=== PATIENT | male | born 1965 | race Caucasian/White ===

== ENCOUNTER → 2020-06-17 15:22 | Outpatient (BNVA) | payer OTHER, SELFPAY | PROVIDERS: PCP Nurse Practitioner Family; Visit Provider Nurse Practitioner Family | DX: Z76.89 Persons encountering health services in other specified circumstances (principal) ==

== ENCOUNTER 2020-06-25 06:11 | Outpatient (REF) | payer OTHER, SELFPAY ==
[2020-06-25 11:40] LABS: Hemoglobin 16.2 g/dl (14.0-18.0); Mean Corpuscular HGB Conc 34.5 g/dl (31.0-36.0); Mean Corpuscular Hemoglobin 30.7 pg (27.0-33.0); Mean Platelet Volume 9.7 fL (9.4-12.4); Platelet Count 225 X10*3/uL (160-400); Red Blood Count 5.28 X10*6/uL (4.60-5.80); Red Cell Distribution Width 12.3 % (11.0-16.0); White Blood Count 5.5 X10*3/uL (4.8-10.8)
[2020-06-25 11:44] LABS: Glucose Urine UA NEG (NEG); Leukocyte Esterase Urine NEG (NEG); Nitrite Urine NEG (NEG); Specific Gravity - Urine <= 1.005 (1.005-1.025); Urine Blood NEG (NEG); Urine Ketones NEG (NEG); Urine Protein NEG (NEG-TRACE)
[2020-06-25 11:51] LABS: Appearance Urine CLEAR; Color Urine YELLOW
[2020-06-25 11:56] LABS: Alanine Aminotransferase 28 U/L (0-40); Albumin Level 4.5 g/dL (3.5-5.0); Alkaline Phosphatase 44 U/L (39-117); Anion Gap 13 (12-20); Aspartate Amino Transferase 20 U/L (5-37); Bilirubin Total 0.9 mg/dL (0.0-1.0); Blood Urea Nitrogen 18 mg/dL (9-16); Calcium 8.2 mg/dL (8.4-10.2); Carbon Dioxide 25 mmol/L (22-29); Chloride 102 mmol/L (96-108); Cholesterol 202 mg/dL; Estimated Glomerular Filt Rate > 60; Glucose Fasting 92 mg/dL (60-99); HDL Cholesterol 40 mg/dL; LDL Cholesterol Calculated 122 mg/dl; Sodium 136 mmol/L (135-145); Triglycerides 204 mg/dL
[2020-06-25 12:18] LABS: Prostate Specific Antigen Scr 0.87 ng/mL (<0.05-4.0); TSH reflex Free T4 2.17 mIU/mL (0.32-4.0)
== END 2020-06-25 06:12 | disposition home or self-care (01) ==
LOC: HO.HMGCLDS 06:11
PROVIDERS: PCP Nurse Practitioner Family; Visit Provider Nurse Practitioner Family
DX: Z00.00 Encounter for general adult medical examination without abnormal findings (principal); Z12.5 Encounter for screening for malignant neoplasm of prostate; Z12.11 Encounter for screening for malignant neoplasm of colon
CPT/HCPCS: 36415; 80053; 80061; 81003; 84153; 84443; 85027

== ENCOUNTER 2020-08-18 07:18 | Day surgery (SDC) | payer OTHER, SELFPAY ==
--- NOTE | 2020-08-15 08:16 | HO.ANESPROP2 ---
Documented by User: Ban Alfaro 08/15/20 13:23 HPI - Anesthesia Eval Consult details Narrative: 54yo M for Colonoscopy [facility] Past Medical History Medical History Diverticulitis Dyslipidemia Family History Family History Mother Diabetes HTN (hypertension) Father Stomach cancer Diabetes HTN (hypertension) Brother No problems noted. Social History Social History Alcohol intake: current Alcohol intake frequency: a few times a month Alcohol type: beer Smoking Status: Never smoker Advance Directives: No Advance Directives Information Provided: Yes Meds Allergies Allergy/AdvReac Type Severity Reaction Status Date / Time Penicillins [PENICILLINS] Allergy Severe ANAPHYLAXIS Verified 06/17/20 15:23 penicillin V Allergy Unknown anaphylaxis Verified 06/17/20 15:23 Exam Exam Date and Time: August 15, 2020 0816 Assessment and Plan Assessment Anesthesia Assessment: Chart Reviewed Documented by User: Remi Ritchie 08/18/20 07:44 [facility] Past Medical History Medical History Diverticulitis Dyslipidemia Family History Family History Mother Diabetes HTN (hypertension) Father Stomach cancer Diabetes HTN (hypertension) Brother No problems noted. Social History Social History Alcohol intake: current Alcohol intake frequency: a few times a month Alcohol type: beer Smoking Status: Never smoker Advance Directives: No Advance Directives Information Provided: Yes Meds Allergies Allergy/AdvReac Type Severity Reaction Status Date / Time Penicillins [PENICILLINS] Allergy Severe ANAPHYLAXIS Verified 06/17/20 15:23 penicillin V Allergy Unknown anaphylaxis Verified 06/17/20 15:23 Exam Airway Mallampati Class: II TM Dist: >3cm Neck ROM: Full
--- NOTE | 2020-08-18 07:34 | MHC.SHP ---
Pre-Procedural Eval Section B Chief Complaint: screening Relevant Family History (Specify if Yes): No Relevant Social History: None Present Medications: None Medical History: Significant History (Diverticulitis Dyslipidemia) History of Previous Operations: No relevant previous surgery Allergies: Allergies Allergy/AdvReac Type Severity Reaction Status Date / Time Penicillins [PENICILLINS] Allergy Severe ANAPHYLAXIS Verified 06/17/20 15:23 penicillin V Allergy Unknown anaphylaxis Verified 06/17/20 15:23 Review of Systems Sugical H&P ROS: Negative: Constitution, Cardiovascular, Respiratory, Neurological, Psychiatric, Hem-Onc, Allergic/Immunologic, Gastrointestinal, Genitourinary, Musculoskeletal, Integumentary, Endocrine and Eyes/Ears/Nose/Throat Exam Surgical H&P Exam: Normal: HEENT, Normal: Heart, Normal: Lungs, Normal: Extremities, Normal: Abdomen, Normal: Skin and Normal: Neurological Plan Diagnosis/Plan: Unchanged I have reviewed the history and physical and performed a pertinent physical examination on my patient. No changes have occurred unless specified.
[2020-08-18 08:00] VITALS: BMI 29.7; BMI 30.6
[2020-08-18 08:07] VITALS: BP 139/98; PULSE 91; RESP 16; TEMP 36.1; O2SAT 98
[2020-08-18] MEDS: Lactated Ringers 1,000 ML 100 ML IVCONT (08:10)
--- NOTE | 2020-08-18 09:08 | PM.OP ---
Brief Operative Note Date of Service: 08/18/20 Pre-op diagnosis: colon screen Post-op diagnosis: same Procedure: see op note Surgeon: Toy Dunaway MD Anesthesia: MAC Estimated blood loss (mL): 0 Condition: stable Disposition: PACU
--- NOTE | 2020-08-18 09:09 | W.PM.OPN ---
Operative Note Operative Note Date of Service: 08/18/20 Narrative: Operative Information Procedure Description: Colonoscopy COLONOSCOPY Instrument: Olympus variable stiffness pediatric scope 190L Colonoscopy Monitoring: Vital signs and clinical assessment, continuous EKG monitoring, Pulse oximetry, Carbon Dioxide monitoring and blood pressure monitoring were done throughout the procedure. Colon withdrawal time was 10 minutes. Procedure: The patient was placed in the left lateral decubitis position and pre-procedure medications were administered. After a digital rectal examination of the ano-rectum, the video colonoscope was inserted into the rectum and advanced through the colon to the cecum/TI. The colonoscope was slowly withdrawn in a retrograde panoramic fashion and the colon mucosa was carefully examined including a retroflexed view of the rectum. Findings and interventions are described below. Procedure Difficulty:easy Findings: Terminal Ileum-normal Cecum:normal Ascending Colon: normal Transverse Colon -normal Descending Colon:10 mm sessile polyp removed with cold snare otherwise normal Sigmoid Colon: normal Rectum: Retroflexion with small internal hemorrhoids, grade I Anorectum - normal Colon preparation: [place] Bowel Preparation Scale Right colon; 3 Transverse colon: 2 Left colon; 2 (0 = Unprepared colon segment with mucosa not seen due to solid stool that cannot be cleared. 1 = Portion of mucosa of the colon segment seen, but other areas of the colon segment not well seen due to staining, residual stool and/or opaque liquid. 2 = Minor amount of residual staining, small fragments of stool and/or opaque liquid, but mucosa of colon segment seen well. 3 = Entire mucosa of colon segment seen well with no residual staining, small fragments of stool or opaque liquid) Impression and Post Procedure Diagnosis: polyp internal hemorrhoids Plan: High fiber diet leaflet Avoid straining at stool, epsom salts and sitz bath, anusol supps or cream prn Repeat Colonoscopy in 5-6 years or earlier if clinically indicated Above findings were reviewed with the patient and relevant handouts were provided if indicated.
[2020-08-18 09:10] VITALS: BP 110/67; PULSE 72; RESP 14; TEMP 36.2; O2SAT 95
[2020-08-18 09:25] VITALS: BP 128/80; PULSE 72; RESP 17; TEMP 36.2; O2SAT 96
== END 2020-08-18 09:43 | disposition home or self-care (01) ==
PROVIDERS: PCP Nurse Practitioner Family; Visit Provider Internal Medicine Gastroenterology
PROC: 0DJD8ZZ Inspection of Lower Intestinal Tract, Via Natural or Artificial Opening Endoscopic (ICD-10-PCS; CPT 45378; principal; 2020-08-18 08:30)
DX: Z12.11 Encounter for screening for malignant neoplasm of colon (principal); D12.4 Benign neoplasm of descending colon; K64.0 First degree hemorrhoids; Z87.19 Personal history of other diseases of the digestive system; Z88.0 Allergy status to penicillin
CPT/HCPCS: 45385; 88305; J3010

== ENCOUNTER → 2020-09-09 15:19 | Outpatient (BNVA) | payer OTHER, SELFPAY | PROVIDERS: PCP Nurse Practitioner Family; Visit Provider Nurse Practitioner Family ==

== ENCOUNTER 2022-01-01 06:03 | Outpatient (REF) | payer OTHER, SELFPAY ==
[2022-01-01 11:29] LABS: Appearance Urine CLEAR; Color Urine YELLOW; Glucose Urine UA NEG (NEG); Leukocyte Esterase Urine NEG (NEG); Nitrite Urine NEG (NEG); Urine Blood NEG (NEG); Urine Ketones NEG (NEG); Urine Protein NEG (NEG-TRACE)
[2022-01-01 11:42] LABS: MANUAL DIFF FLAG NO
[2022-01-01 12:04] LABS: Basophils Percent Auto 0.6 % (0-2); Eosinophils Absolute Auto 0.2 X10*3/uL (0.0-0.4); Eosinophils Percent Auto 3.1 % (0-4); Hematocrit 47.8 % (42.0-52.0); Hemoglobin 16.3 g/dl (14.0-18.0); Imm Gran Abs Auto 0.02 X10*3/uL (0.00-0.03); Imm Gran Pct Auto 0.4 % (0.0-0.4); Lymphocytes Absolute Auto 1.7 X10*3/uL (1.2-4.9); Lymphocytes Percent Auto 33.9 % (20-40); Mean Corpuscular HGB Conc 34.1 g/dl (31.0-36.0); Mean Corpuscular Hemoglobin 30.2 pg (27.0-33.0); Mean Corpuscular Volume 88.7 fL (80.0-98.0); Mean Platelet Volume 9.7 fL (9.4-12.4); Monocytes Absolute Auto 0.5 X10*3/uL (0.1-1.2); Neutrophils Absolute Auto 2.7 x10*3/uL (2.0-8.3); Platelet Count 231 X10*3/uL (160-400); Red Blood Count 5.39 X10*6/uL (4.60-5.80); Red Cell Distribution Width 12.6 % (11.0-16.0); White Blood Count 5.1 X10*3/uL (4.8-10.8)
[2022-01-01 12:19] LABS: Alanine Aminotransferase 19 U/L (0-40); Albumin Level 4.7 g/dL (3.5-5.0); Alkaline Phosphatase 51 U/L (39-117); Anion Gap 13 (12-20); Aspartate Amino Transferase 18 U/L (5-37); Bilirubin Total 0.7 mg/dL (0.0-1.0); Blood Urea Nitrogen 19 mg/dL (9-16); Calcium 9.3 mg/dL (8.4-10.2); Carbon Dioxide 26 mmol/L (22-29); Chloride 108 mmol/L (96-108); Cholesterol 196 mg/dL; Estimated Glomerular Filt Rate > 60; Glucose Fasting 110 mg/dL (60-99); HDL Cholesterol 40 mg/dL; LDL Cholesterol Calculated 124 mg/dl; Potassium 4.7 mmol/L (3.3-5.1); Sodium 142 mmol/L (135-145); Total Protein 7.6 g/dL (6.5-8.0); Triglycerides 163 mg/dL
[2022-01-01 12:42] LABS: Prostate Specific Antigen Scr 0.65 ng/mL (<0.05-4.0); TSH reflex Free T4 1.55 uIU/mL (0.32-4.0)
== END 2022-01-01 06:04 | disposition home or self-care (01) ==
LOC: HO.HMGCLDS 06:03
PROVIDERS: PCP Nurse Practitioner Family; Visit Provider Nurse Practitioner Family
DX: Z00.00 Encounter for general adult medical examination without abnormal findings (principal); Z12.5 Encounter for screening for malignant neoplasm of prostate
CPT/HCPCS: 36415; 80053; 80061; 81003; 84153; 84443; 85025

== ENCOUNTER 2022-06-16 08:39 | Outpatient (REF) | payer OTHER, SELFPAY ==
[2022-06-16 11:16] LABS: MANUAL DIFF FLAG NO
[2022-06-16 11:34] LABS: Basophils Percent Auto 0.8 % (0-2); Eosinophils Absolute Auto 0.2 X10*3/uL (0.0-0.4); Hemoglobin 16.3 g/dl (14.0-18.0); Imm Gran Abs Auto 0.03 X10*3/uL (0.00-0.03); Imm Gran Pct Auto 0.6 % (0.0-0.4); Lymphocytes Absolute Auto 1.5 X10*3/uL (1.2-4.9); Lymphocytes Percent Auto 31.2 % (20-40); Mean Corpuscular Hemoglobin 29.7 pg (27.0-33.0); Mean Corpuscular Volume 87.4 fL (80.0-98.0); Mean Platelet Volume 9.5 fL (9.4-12.4); Monocytes Absolute Auto 0.5 X10*3/uL (0.1-1.2); Monocytes Percent Auto 9.4 % (2-11); Neutrophils Absolute Auto 2.5 x10*3/uL (2.0-8.3); Platelet Count 236 X10*3/uL (160-400); Red Blood Count 5.49 X10*6/uL (4.60-5.80); Red Cell Distribution Width 12.5 % (11.0-16.0); White Blood Count 4.8 X10*3/uL (4.8-10.8)
[2022-06-16 11:58] LABS: Alanine Aminotransferase 28 U/L (0-40); Albumin Level 4.8 g/dL (3.5-5.0); Alkaline Phosphatase 50 U/L (39-117); Anion Gap 15 (12-20); Aspartate Amino Transferase 22 U/L (5-37); Bilirubin Total 0.9 mg/dL (0.0-1.0); Blood Urea Nitrogen 17 mg/dL (9-16); Calcium 9.3 mg/dL (8.4-10.2); Carbon Dioxide 27 mmol/L (22-29); Chloride 106 mmol/L (96-108); Cholesterol 213 mg/dL; Estimated Glomerular Filt Rate > 60; Glucose Fasting 106 mg/dL (60-99); HDL Cholesterol 45 mg/dL; LDL Cholesterol Calculated 138 mg/dl; Potassium 4.7 mmol/L (3.3-5.1); Sodium 143 mmol/L (135-145); Total Protein 7.6 g/dL (6.5-8.0); Triglycerides 153 mg/dL
[2022-06-16 12:02] LABS: TSH reflex Free T4 1.12 uIU/mL (0.32-4.0)
[2022-06-16 14:01] LABS: Appearance Urine Clear; Color Urine Yellow; Glucose Urine UA Negative (Negative); Leukocyte Esterase Urine Negative (Negative); Nitrite Urine Negative (Negative); PH 5.5 (5.0-9.0); Urine Blood Negative (Negative); Urine Ketones Negative (Negative); Urine Protein Negative (Neg-Trace)
== END 2022-06-16 08:40 | disposition home or self-care (01) ==
LOC: HO.HMGCLDS 08:39
PROVIDERS: PCP Nurse Practitioner Family; Visit Provider Nurse Practitioner Family
DX: R73.01 Impaired fasting glucose (principal)
CPT/HCPCS: 36415; 80053; 80061; 81003; 84443; 85025

== ENCOUNTER 2022-10-01 06:05 | Outpatient (REF) | payer OTHER, SELFPAY ==
[2022-10-01 12:33] LABS: Alanine Aminotransferase 28 U/L (0-40); Albumin Level 4.7 g/dL (3.5-5.0); Alkaline Phosphatase 50 U/L (39-117); Anion Gap 12 (12-20); Aspartate Amino Transferase 21 U/L (5-37); Bilirubin Total 1.2 mg/dL (0.0-1.0); Blood Urea Nitrogen 18 mg/dL (9-16); Calcium 8.9 mg/dL (8.4-10.2); Carbon Dioxide 27 mmol/L (22-29); Chloride 104 mmol/L (96-108); Cholesterol 152 mg/dL; Estimated Glomerular Filt Rate > 60; Glucose Fasting 108 mg/dL (60-99); HDL Cholesterol 42 mg/dL; LDL Cholesterol Calculated 89 mg/dl; Potassium 3.9 mmol/L (3.3-5.1); Sodium 139 mmol/L (135-145); Total Protein 7.1 g/dL (6.5-8.0); Triglycerides 107 mg/dL
== END 2022-10-01 06:06 | disposition home or self-care (01) ==
LOC: HO.HMGCLDS 06:05
PROVIDERS: PCP Nurse Practitioner Family; Visit Provider Nurse Practitioner Family
DX: R73.01 Impaired fasting glucose (principal); E78.5 Hyperlipidemia, unspecified
CPT/HCPCS: 36415; 80053; 80061

== ENCOUNTER 2023-03-30 14:41 | Outpatient (AMB) | payer OTHER, SELFPAY ==
--- NOTE | 2023-03-30 14:53 | MHC.PC.OV ---
Vital Signs 03/30/23 14:54 Height 6 ft 1 in Weight 226 lb 4 oz BMI 29.8 BP 130/82 Blood Pressure Location Lt brachial Position Sitting Pulse 80 Pulse Source Pulse Oximeter Pulse Oximetry (%) 96 Oxygen Delivery Method Room Air Intake Visit Reasons: 6 Month follow up Allergies Penicillins [PENICILLINS] Allergy (Severe, Verified 03/30/23 14:55) ANAPHYLAXIS penicillin V Allergy (Unknown, Verified 03/30/23 14:55) anaphylaxis Medication List - Last Reconciled 03/30/23 by COOKIE Douglas cetirizine (Zyrtec) 10 mg PO DAILY PRN rosuvastatin 5 mg PO DAILY Tobacco use date assessed: 03/30/23 Dental Screening Dental Screen Date: 03/30/23 Did you have a dental visit in the last 12 months?: Yes Did you have a dental problem in the last 6 months where you did not have access to dental care?: No Was dental information given to patient?: Patient has dentist HPI 6 Month follow up HPI Details Pt is here for a PE. Will order labs. Colon screen is up to date. Due for PSA, will order. Denies dribbling with urination, weak stream, and nocturia. Pt reports decreased hearing and tinnitus. Will refer for hearing screen. [facility] Medical History Diverticulitis Dyslipidemia Tinnitus Tubular adenoma Surgical History H/O colonoscopy Family History Mother Diabetes HTN (hypertension) Hemochromatosis Father Stomach cancer Diabetes HTN (hypertension) Brother Hemochromatosis Sister Hemochromatosis Diabetes HTN (hypertension) Social History Household Members: Spouse and Children Housing: House Alcohol intake: current Alcohol intake frequency: holidays/special occasions only Alcohol type: beer Patient Tobacco Use Status: Never used Tobacco e-Cigarette/Vaping Use: Never Used Second Hand Smoke Exposure: No service: No Current occupational status: employed Current occupation: [email or web address] Current occupational exposures/hazards: No Cognitive needs: No Hearing needs: No Vision needs: No Questionnaire Thrive Questionnaire Date Thrive assessed: 11/16/21 ELLEN-7 AMB Questionnaire ELLEN-7 Date ELLEN - 7 assessed: 11/16/21 Source: Developed by Drs. Edwar Garay, Kayla Perkins, Manjinder Merida and colleagues, with an educational gustavo from [employer]. Review of Systems Const Denies chills and Denies fever(s) Eyes Denies blurry vision ENT Denies vertigo, Denies dizziness and Denies sore throat Card Denies chest pain at rest, Denies chest pain with activity, Denies diaphoresis, Denies dyspnea and Denies dyspnea on exertion Resp Denies cough, Denies dyspnea, Denies dyspnea on exertion and Denies wheezing GI Denies abdominal pain, Denies melena, Denies hematochezia, Denies constipation, Denies diarrhea and Denies loose stools Denies hematuria Musc Denies numbness and Denies tingling Skin/Breast Denies lesions Neuro Denies vertigo, Denies dizziness, Denies numbness and Denies tingling Psych Denies anxiety, Denies depression, Denies homicidal ideation, Denies suicidal ideation and Denies other (substance abuse) Aller/Immun Denies wheezing Physical exam (Primary Care) Vital Signs: Last Vital Signs Pulse 80 03/30/23 14:54 BP 130/82 03/30/23 14:54 Pulse Ox 96 03/30/23 14:54 Oxygen Delivery Method Room Air 03/30/23 14:54 BMI result Body Mass Index 29.8 Tobacco/Smoking Status: Tobacco use Status Tobacco use date assessed 03/30/23 03/30/23 14:57 Patient Tobacco Use Status Never used Tobacco 03/30/23 14:57 e-Cigarette/Vaping Use Never Used 03/30/23 14:57 Thrive Assessment: Date of Thrive Assessment Date Thrive assessed 11/16/21 03/30/23 14:57 Const General: cooperative Nutritional Appearance: well nourished Orientation/consciousness: patient oriented x3 HENMT Head: Yes normal to inspection, Yes normocephalic and Yes atraumatic Ears: TM's normal bilaterally Eyes General: appearance normal, both eyes and all related structures Alignment and Position: alignment normal and position normal Neck Neck: Yes normal visual inspection and Yes no lymphadenopathy Thyroid: Thyroid normal Resp Effort & Inspection: normal respiratory effort Auscultation: clear to auscultation bilaterally Cardio Rate: regular rate Rhythm: regular rhythm Heart sounds: S1 normal heart sound present, S2 normal heart sound present and no murmurs GI Palpation (GI): Soft to palpation and nontender Auscultation: normal bowel sounds Male General Exam: Yes normal external exam Penis: normal penis Scrotum: scrotum normal, testes descended bilaterally and no inguinal hernias Testes: no testicular mass Skin Rashes: no rashes Neuro General: patient oriented x3, moves all extremities, no focal motor deficits and deep tendon reflexes 2+ bilaterally Romberg Test: Negative Psych Appearance: grossly normal Mental Status: mental status grossly normal Speech and movement: Normal speech and movement present Affect: normal affect Attitude: cooperative Thought process: Normal thought process present Thought content: Normal thought content present Insight: Good insight present (Psych) Judgement: Good judgement present (Psych) Assessment and Plan Assessment & Plan (1) Tinnitus: Code(s): H93.19 - Tinnitus, unspecified ear Plan: Referred for hearing screen (2) Loss of hearing: Code(s): H91.90 - Unspecified hearing loss, unspecified ear Plan: Referred for hearing screen (3) Physical exam: Code(s): Z00.00 - Encounter for general adult medical examination without abnormal findings Plan: Labs ordered (4) Screening PSA (prostate specific antigen): Code(s): Z12.5 - Encounter for screening for malignant neoplasm of prostate Plan: PSA ordered (5) Family history of hemochromatosis: Code(s): Z83.49 - Family history of other endocrine, nutritional and metabolic diseases Plan The patient agreed to the use of a expert medical writer for this encounter. Scribed for COOKIE Mendez by Johanne Rios expert medical writer, on 03/30/2023 at 15:20 EST. Orders: Orders Comprehensive [place]. Panel Fast Today Z00.00 - Encounter for general adult medical examination without abnormal findings Lipid Panel Today Z00.00 - Encounter for general adult medical examination without abnormal findings TSH reflex Free T4 Today Z00.00 - Encounter for general adult medical examination without abnormal findings Complete Blood Count Auto Diff Today Z00.00 - Encounter for general adult medical examination without abnormal findings UA CC w/rflx Micro + Cult Today Z00.00 - Encounter for general adult medical examination without abnormal findings Prostate Specific Antigen Scr Today Z12.5 - Encounter for screening for malignant neoplasm of prostate Ferritin Today Z83.49 - Family history of other endocrine, nutritional and metabolic diseases IRON PROFILE Today Z83.49 - Family history of other endocrine, nutritional and metabolic diseases AMB EKG-In Office Today Z00.00 - Encounter for general adult medical examination without abnormal findings Referrals Speech and Hearing Referral H91.90 - Unspecified hearing loss, unspecified ear, H93.19 - Tinnitus, unspecified ear Coding Level of Care Code Est Pt Prev Care 40-64y(60250) Diagnoses Tinnitus H93.19 Loss of hearing H91.90 Physical exam Z00.00 Screening PSA (prostate specific antigen) Z12.5 Family history of hemochromatosis Z83.49
[2023-03-30 14:54] VITALS: BP 130/82; PULSE 80; O2SAT 96; BMI 29.8
== END 2023-03-30 15:49 | disposition home or self-care (01) ==
PROVIDERS: Visit Provider Nurse Practitioner Family
DX: Z00.00 Encounter for general adult medical examination without abnormal findings (principal); H93.13 Tinnitus, bilateral; H91.93 Unspecified hearing loss, bilateral; Z83.49 Family history of other endocrine, nutritional and metabolic diseases; Z12.5 Encounter for screening for malignant neoplasm of prostate
CPT/HCPCS: 99396

== ENCOUNTER 2023-04-07 06:03 | Outpatient (REF) | payer OTHER, SELFPAY ==
[2023-04-07 11:37] LABS: MANUAL DIFF FLAG NO
[2023-04-07 12:03] LABS: Basophils Percent Auto 0.4 % (0-2); Eosinophils Absolute Auto 0.2 X10*3/uL (0.0-0.4); Eosinophils Percent Auto 3.8 % (0-4); Hematocrit 46.5 % (42.0-52.0); Hemoglobin 15.9 g/dl (14.0-18.0); Imm Gran Abs Auto 0.02 X10*3/uL (0.00-0.03); Imm Gran Pct Auto 0.4 % (0.0-0.4); Lymphocytes Absolute Auto 1.4 X10*3/uL (1.2-4.9); Lymphocytes Percent Auto 29.1 % (20-40); Mean Corpuscular HGB Conc 34.2 g/dl (31.0-36.0); Mean Corpuscular Hemoglobin 30.3 pg (27.0-33.0); Mean Corpuscular Volume 88.7 fL (80.0-98.0); Mean Platelet Volume 9.9 fL (9.4-12.4); Monocytes Absolute Auto 0.5 X10*3/uL (0.1-1.2); Monocytes Percent Auto 10.8 % (2-11); Neutrophils Absolute Auto 2.6 x10*3/uL (2.0-8.3); Neutrophils Percent Auto 55.5 % (45-73); Platelet Count 218 X10*3/uL (160-400); Red Blood Count 5.24 X10*6/uL (4.60-5.80); Red Cell Distribution Width 12.2 % (11.0-16.0); White Blood Count 4.7 X10*3/uL (4.8-10.8)
[2023-04-07 12:08] LABS: Appearance Urine Clear; Color Urine Yellow; Glucose Urine UA Negative (Negative); Leukocyte Esterase Urine Negative (Negative); Nitrite Urine Negative (Negative); Specific Gravity - Urine 1.015 (1.005-1.025); Urine Blood Negative (Negative); Urine Ketones Negative (Negative); Urine Protein Negative (Neg-Trace)
[2023-04-07 12:30] LABS: Alanine Aminotransferase 20 U/L (0-40); Albumin Level 4.4 g/dL (3.5-5.0); Alkaline Phosphatase 49 U/L (39-117); Anion Gap 9 (12-20); Aspartate Amino Transferase 19 U/L (5-37); Bilirubin Total 0.6 mg/dL (0.0-1.0); Blood Urea Nitrogen 21 mg/dL (9-16); Calcium 9.2 mg/dL (8.4-10.2); Carbon Dioxide 26 mmol/L (22-29); Chloride 110 mmol/L (96-108); Cholesterol 151 mg/dL (<200); Estimated Glomerular Filt Rate > 60; Glucose Fasting 110 mg/dL (60-99); HDL Cholesterol 46 mg/dL (>40); Iron 98 mcg/dL (45-160); LDL Cholesterol Calculated 86 mg/dL (<100); Percent Iron Saturation 37 % (15-50); Sodium 141 mmol/L (135-145); Total Iron Binding Capacity 265 mcg/dL (228-428); Triglycerides 98 mg/dL (<150); Unsaturated Iron Binding 167 ug/dL
[2023-04-07 12:33] LABS: Prostate Specific Antigen Scr 0.59 ng/mL (<0.05-4.0)
[2023-04-07 12:48] LABS: Ferritin 328 ng/mL (20-250); TSH reflex Free T4 1.36 uIU/mL (0.32-4.0)
== END 2023-04-07 06:04 | disposition home or self-care (01) ==
LOC: HO.HMGCLDS 06:03
PROVIDERS: PCP Nurse Practitioner Family; Visit Provider Nurse Practitioner Family
DX: Z00.00 Encounter for general adult medical examination without abnormal findings (principal); Z12.5 Encounter for screening for malignant neoplasm of prostate; Z83.49 Family history of other endocrine, nutritional and metabolic diseases; Z20.822 Contact with and (suspected) exposure to COVID-19; E78.5 Hyperlipidemia, unspecified; Z13.29 Encounter for screening for other suspected endocrine disorder
CPT/HCPCS: 36415; 80053; 80061; 81003; 82728; 83540; 84153; 84443; 85025

== ENCOUNTER 2023-04-22 06:03 | Outpatient (REF) | payer OTHER, SELFPAY | END 2023-04-22 06:04 | disposition home or self-care (01) | LOC: HO.HMGCLDS 06:03 | PROVIDERS: PCP Nurse Practitioner Family; Visit Provider Nurse Practitioner Family | DX: R79.89 Other specified abnormal findings of blood chemistry (principal); Z83.49 Family history of other endocrine, nutritional and metabolic diseases | CPT/HCPCS: 36415; 81256 ==

== ENCOUNTER 2023-06-21 13:04 | Outpatient (REF) | payer OTHER, SELFPAY ==
--- NOTE | 2023-06-21 16:29 | MHC.AU.HA1 ---
Hearing Aid Evaluation Date of Visit: 06/21/23 Historical Information: Description of Hearing: Normal sloping to moderately severe sensorineural hearing loss right ear, normal sloping to severe sensorineural hearing loss left ear Summary: Mars is interested in pursuing amplification to address both his hearing loss and his tinnitus. He is aware of recommendation to see ENT and plans to schedule consult. Reviewed style and technology options, most likely interested in Real 3 miniRITE R. He and his Christine plan to call their insurance to find out if they have a hearing aid benefit and then review finances. They will call when ready to place order. Hearing Aid Prescription: Based on the individual?s shared listening needs, communication environments, dexterity, desire for connectivity, and personal preferences, the following prescription for amplification has been made: Right ear: Make, Model, Color: Oticon Real 3 miniRITE R in chroma beige Battery Size: Rechargeable Sleep Technician/Slim Tube: 3 85g Type of Earmold/Dome/CShell/SlimTip: 8mm dbl husain Left ear: Left ear prescription to be same as Right Hearing Aid above: Make, Model, Color: Oticon Real 3 miniRITE R in chroma beige Battery Size: Rechargeable Sleep Technician/Slim Tube: 3 85g Type of Earmold/Dome/CShell/SlimTip: 8mm dbl husain Accessories/Assistive Technology Recommended: Plan of Care: Action Taken/Action Needed: Comments: Patient will call when ready to order and confirm details. Primary Diagnosis: H90.3 Bilateral Sensorineural Hearing Loss Secondary Diagnosis: H93.12 Tinnitus, Left Ear Signature: Provider: Jaymie Marshall, [facility]
== END 2023-06-21 13:05 | disposition home or self-care (01) ==
LOC: HO.SH 13:04
PROVIDERS: Visit Provider Nurse Practitioner Family
DX: Z01.118 Encounter for examination of ears and hearing with other abnormal findings (principal); H90.3 Sensorineural hearing loss, bilateral; H93.12 Tinnitus, left ear
CPT/HCPCS: 92557; 92567

== ENCOUNTER 2023-06-24 06:03 | Outpatient (REF) | payer OTHER, SELFPAY ==
[2023-06-24 12:08] LABS: Iron 144 mcg/dL (45-160); Percent Iron Saturation 52 % (15-50); Total Iron Binding Capacity 275 mcg/dL (228-428); Unsaturated Iron Binding 131 ug/dL
[2023-06-24 12:15] LABS: Ferritin 366 ng/mL (20-250)
== END 2023-06-24 06:04 | disposition home or self-care (01) ==
LOC: HO.HMGCLDS 06:03
PROVIDERS: PCP Nurse Practitioner Family; Visit Provider Nurse Practitioner Family
DX: R79.89 Other specified abnormal findings of blood chemistry (principal)
CPT/HCPCS: 36415; 82728; 83540

== ENCOUNTER 2023-07-28 14:50 | Outpatient (REF) | payer SELFPAY ==
--- NOTE | 2023-07-29 08:12 | MHC.AU.HA1 ---
Hearing Aid Evaluation Date of Visit: 07/28/22 Historical Information: Description of Hearing: Borderline normal sloping to severe sensorineural hearing loss Summary: Mars returned with his to further discuss hearing aids. He would like to pursue a trial; selected Real 2 miniRITE R in chroma beige. He plans to connect them to his iPhone for both streaming and darwin use. Mars is seeing Dr Christine on 08/04 and will request medical clearance for hearing aid use. Hearing Aid Prescription: Based on the individual?s shared listening needs, communication environments, dexterity, desire for connectivity, and personal preferences, the following prescription for amplification has been made: Right ear: Make, Model, Color: Oticon Real 2 miniRITE R in chroma beige Battery Size: Rechargeable Kids Activities Coach/Slim Tube: 3 85g Type of Earmold/Dome/CShell/SlimTip: 8mm dbl husain Left ear: Left ear prescription to be same as Right Hearing Aid above: Make, Model, Color: Oticon Real 2 miniRITE R in chroma beige Battery Size: Rechargeable Kids Activities Coach/Slim Tube: 3 85g Type of Earmold/Dome/CShell/SlimTip: 8mm dbl husain Plan of Care: Action Taken/Action Needed: Medical Clearance to be requested from PCP/ENT Hearing Instrument Fitting to be scheduled when materials arrive Primary Diagnosis: H90.3 Bilateral Sensorineural Hearing Loss Secondary Diagnosis: H93.12 Tinnitus, Left Ear Signature: Provider: Jaymie Marshall, CCC-A
== END 2023-07-28 14:51 | disposition home or self-care (01) ==
LOC: HO.HAP 14:50
PROVIDERS: Visit Provider Nurse Practitioner Family
DX: Z46.1 Encounter for fitting and adjustment of hearing aid (principal); H90.3 Sensorineural hearing loss, bilateral
CPT/HCPCS: 92591

== ENCOUNTER 2023-08-15 15:08 | Outpatient (REF) | payer SELFPAY ==
--- NOTE | 2023-08-16 08:10 | MHC.AU.HA2 ---
Hearing Instrument Fitting- Adult- Binaural Date of Visit: 08/15/23 Hearing Instruments Dispensed: Right Ear: Make, Model, Color, Serial Number: Oticon Real 2 miniRITE R Chroma Beige SN [id number] Marketing Sales Supervisor Repair Warranty: 08/27/2026 Marketing Sales Supervisor Loss and Damage Warranty: 08/27/2026 [facility] Service Plan: N/A Battery Size: Rechargeable Extractive Metallurgist/Slim Tube: 2 85g Earmold/Dome/CShell/SlimTip: 10mm dbl husain Type of Wax Guard: ProWax MiniFit Left Ear: Make, Model, Color, Serial Number: Oticon Real 2 miniRITE R Chroma Beige SN [id number] Marketing Sales Supervisor Repair Warranty: 08/27/2026 Marketing Sales Supervisor Loss and Damage Warranty: 08/27/2026 [facility] Service Plan: N/A Battery Size: Rechargeable Extractive Metallurgist/Slim Tube: 3 85g Earmold/Dome/CShell/SlimTip: 10mm dbl lisha Type of Wax Guard: ProWax MiniFit Accessories/Assistive Technology: Oticon [employer] Insurance Agent SN [id number] Summary of Fitting: Mars visited for fitting with Real 2 miniRITE R hearing aids. Reviewed basics of use, cleaning/wax guards, railroad maintenance clerk, insertion/removal. Programmed and verified to DSL 5.0 targets. Decreased gain to level 1 due to discomfort with own voice. VC is active. He will be interested in programming with phone at follow up, will find his Apple ID and bring phone to appointment. Follow up in 2-3 weeks. Recommendations: Recommendations: A hearing instrument follow-up is recommended in 2-3 weeks. Diagnosis Code(s): Primary Diagnosis: H90.3 Bilateral Sensorineural Hearing Loss Signature: Provider: Jaymie Marshall, CCC-A
== END 2023-08-15 15:09 | disposition home or self-care (01) ==
LOC: HO.HAP 15:08
PROVIDERS: Visit Provider Nurse Practitioner Family
DX: Z46.1 Encounter for fitting and adjustment of hearing aid (principal); H90.3 Sensorineural hearing loss, bilateral
CPT/HCPCS: 92700; V5261; V5299

== ENCOUNTER → 2023-08-23 14:38 | Outpatient (BNV) | payer OTHER, SELFPAY | PROVIDERS: PCP Nurse Practitioner Family; Visit Provider Internal Medicine Medical Oncology | DX: R79.89 Other specified abnormal findings of blood chemistry (principal); Z83.49 Family history of other endocrine, nutritional and metabolic diseases | CPT/HCPCS: 99204; 99213 ==

== ENCOUNTER 2023-09-06 15:53 | Outpatient (REF) | payer SELFPAY ==
--- NOTE | 2023-09-06 16:29 | MHC.AU.HA3 ---
Hearing Instrument Follow-Up- Binaural Date of Visit: 09/06/23 Right Ear: Make, Model, Color, Serial Number: Oticon Real 2 miniRITE R Chroma Beige SN [id number] Parlor Chaperone Repair Warranty: 08/27/2026 Parlor Chaperone Loss and Damage Warranty: 08/27/2026 [facility] Service Plan: N/A Battery Size: Rechargeable Adz Worker/Slim Tube: 2 85g Earmold/Dome/CShell/SlimTip:10mm dbl husain Type of Wax Guard: ProWax MiniFit Date of Fittin08/15/23 Left Ear: Make, Model, Color, Serial Number: Oticon Real 2 miniRITE R Chroma Beige SN [id number] Parlor Chaperone Repair Warranty: 08/27/2026 Parlor Chaperone Loss and Damage Warranty: 08/27/2026 [facility] Service Plan: N/A Battery Size: Rechargeable Adz Worker/Slim Tube: 3 85g Earmold/Dome/CShell/SlimTip: 10mm dbl husain Type of Wax Guard: ProWax MiniFit Date of Fittin08/15/23 Follow-Up Summary: Mars reports overall satisfaction with his hearing aids, stating he can hear better at home, with the TV, and even noticed improvement in crowded restaurants. He finds loud crinkly sounds excessive; turned sudden sound management up. Paired with phone and downloaded darwin. Scheduled 6 mo clean and check, he is aware of charge as he opted out of service plan. Recommendations: Recommendations: Hearing instrument maintenance in 6 months, or sooner if needed. Diagnosis Code(s): Primary Diagnosis: H90.3 Bilateral Sensorineural Hearing Loss Signature: Provider: Jaymie Marshall, CCC-A
== END 2023-09-06 15:54 | disposition home or self-care (01) ==
LOC: HO.HAP 15:53
PROVIDERS: Visit Provider Nurse Practitioner Family
DX: Z13.89 Encounter for screening for other disorder (principal)

== ENCOUNTER 2024-01-04 10:04 | Outpatient (AMB) | payer OTHER, SELFPAY ==
[2024-01-04 10:06] VITALS: BP 130/76; PULSE 92; O2SAT 98
--- NOTE | 2024-01-04 10:06 | MHC.PC.OV ---
Vital Signs 01/04/24 10:06 Height 6 ft 1 in Weight 227 lb 8 oz BMI 30.0 BP 130/76 Blood Pressure Location Rt brachial Position Sitting Pulse 92 Pulse Source Pulse Oximeter Pulse Oximetry (%) 98 Oxygen Delivery Method Room Air Intake Visit Reasons: 6 month fu Intake Note: pt is here for 6 month follow up Treasury Specialist Required: No Accompanied by: Self / Same As Patient Allergies Penicillins [PENICILLINS] Allergy (Severe, Verified 01/04/24 11:01) ANAPHYLAXIS penicillin V Allergy (Unknown, Verified 01/04/24 11:01) anaphylaxis Medication List - Last Reconciled 01/04/24 by COOKIE Douglas cetirizine (Zyrtec) 10 mg PO DAILY PRN rosuvastatin 5 mg PO DAILY Tobacco use date assessed: 01/04/24 Dental Screening Dental Screen Date: 01/04/24 Did you have a dental visit in the last 12 months?: Yes Did you have a dental problem in the last 6 months where you did not have access to dental care?: No Was dental information given to patient?: Patient has dentist HPI 6 month fu HPI Details Dyslipidemia: Pt is taking rosuvastatin 5mg. Will order labs. Denies chest pain, shortness of breath, headache, dizziness, and blurred vision. He is following up with hematology due to elevated ferritin. [facility] Medical History Tinnitus Tubular adenoma Diverticulitis Dyslipidemia Surgical History H/O colonoscopy Family History Mother Diabetes HTN (hypertension) Hemochromatosis Father Stomach cancer Diabetes HTN (hypertension) Brother Hemochromatosis Sister Hemochromatosis Diabetes HTN (hypertension) Social History Household Members: Spouse and Children Housing: House Alcohol intake: current Alcohol intake frequency: holidays/special occasions only Alcohol type: beer Patient Tobacco Use Status: Never used Tobacco e-Cigarette/Vaping Use: Never Used Second Hand Smoke Exposure: No service: No Current occupational status: employed Current occupation: [employer] Current occupational exposures/hazards: No Cognitive needs: No Hearing needs: No Vision needs: No Questionnaire PHQ-9 Over the last 2 weeks, how often have you been bothered by any of the following problems? 1. Little interest or pleasure in doing things: not at all 2. Feeling down, depressed, or hopeless: not at all 3. Trouble falling or staying asleep, or sleeping too much: not at all 4. Feeling tired or having little energy: not at all 5. Poor appetite or overeating: not at all 6. Feeling bad about yourself - or that you are a failure or have let yourself or your family down: not at all 7. Trouble concentrating on things, such as reading the newspaper or watching television: not at all 8. Moving or speaking so slowly that other people could have noticed. Or the opposite - being so fidgety or restless that you have been moving around a lot more than usual: not at all 9. Thoughts that you would be better off or of hurting yourself in some way: not at all Total score: 0 Depression Screening Interpretation: Negative Depression Screening Done: Yes 33283 - PHQ-9 Billing: Yes Source: Developed by Drs. Edwar Garay, Kayla Perkins, Manjinder Merida and colleagues, with an educational gustavo from [employer]. Thrive Questionnaire Date Thrive assessed: 01/04/24 I am a: Patient What is your living situation today?: I have a steady place to live Within the past 12 months, did the food you bought not last and you didn't have the money to get more?: Never true Within the past 12 months, did you worry whether your food would run out before you got money to buy more?: Never true Do you have trouble paying for medicines?: No Do you have trouble getting transportation to medical appointments?: No Do you have trouble paying your heating and electricity bill?: No Do you have trouble taking care of your child, family member or friend?: No Do you have trouble with day-to-day activities such as bathing, preparing meals, shopping, managing finances, etc.?: No Are you currently unemployed and looking for a job?: No Are you interested in more education?: No Please select the resources that you would like help with: None Currently or been in a relationship where the following occur: no concerns reported THRIVE Score: 0 AUDIT C Alcohol Use Questionnaire (AUDIT-C) 1. How often do you have a drink containing alcohol?: 2-4 times a month 2. How many drinks containing alcohol do you have on a typical day when you are drinking?: 1 or 2 3. How often do you have six or more drinks on one occasion?: Less than monthly Total Score: 3 Score Reviewed/Action Taken: Yes ELLEN-7 AMB Questionnaire ELLEN-7 Date ELLEN - 7 assessed: 01/04/24 Feeling nervous, anxious, or on edge: 0 = Not at all Not being able to stop or control worryin = Not at all Worrying too much about different things: 0 = Not at all Trouble relaxin = Not at all Being so restless that it is hard to sit still: 0 = Not at all Becoming easily annoyed or irritable: 0 = Not at all Feeling afraid as if something awful might happen: 0 = Not at all Total ELLEN-7 score (0-4 normal; 5-9 mild; 10-14 moderate; 15-21 severe): 0 Source: Developed by Drs. Edwra Garay, Kayla Perkins, Manjinder Merida and colleagues, with an educational gustavo from [employer]. ELLEN-7 Assessment Billing ELLEN-7 Assessment Tool: ELLEN-7 Assessment 72023 Review of Systems Const Reports as per HPI Physical exam (Primary Care) Vital Signs: Last Vital Signs Pulse 92 01/04/24 10:06 BP 130/76 01/04/24 10:06 Pulse Ox 98 01/04/24 10:06 Oxygen Delivery Method Room Air 01/04/24 10:06 BMI result Body Mass Index 30.0 Tobacco/Smoking Status: Tobacco use Status Tobacco use date assessed 01/04/24 01/04/24 10:11 Patient Tobacco Use Status Never used Tobacco 01/04/24 10:11 e-Cigarette/Vaping Use Never Used 01/04/24 10:11 PHQ-9: PHQ-9 Score PHQ-9: Total score 0 01/04/24 10:20 Depression Screening Interpretation: Negative Thrive Assessment: Date of Thrive Assessment Date Thrive assessed 01/04/24 01/04/24 10:11 Currently or been in a relationship where the following occur: no concerns reported Const General: cooperative Orientation/consciousness: patient oriented x3 Resp Effort & Inspection: normal respiratory effort Auscultation: clear to auscultation bilaterally Cardio Rate: regular rate Rhythm: regular rhythm Heart sounds: S1 normal heart sound present and S2 normal heart sound present Neuro General: patient oriented x3 Extrem Right lower extremity: no edema Left lower extremity: no edema Psych Appearance: grossly normal Mental Status: mental status grossly normal Speech and movement: Normal speech and movement present Affect: normal affect Attitude: cooperative Thought process: Normal thought process present Thought content: Normal thought content present Insight: Good insight present (Psych) Judgement: Good judgement present (Psych) Assessment and Plan Assessment & Plan (1) Dyslipidemia: Code(s): E78.5 - Hyperlipidemia, unspecified Plan: Labs ordered (2) Screening PSA (prostate specific antigen): Code(s): Z12.5 - Encounter for screening for malignant neoplasm of prostate Plan The patient agreed to the use of a certified medical aide for this encounter. Scribed for COOKIE Mendez by Johanne Rios certified medical aide, on 01/04/2024 at 10:20 EST. Orders: Orders Comprehensive [place]. Panel Fast Today E78.5 - Hyperlipidemia, unspecified Lipid Panel Today E78.5 - Hyperlipidemia, unspecified Prostate Specific Antigen Scr Today Z12.5 - Encounter for screening for malignant neoplasm of prostate Coding Level of Care Code Est Pt Level 3 (79657) Diagnoses Dyslipidemia E78.5 Screening PSA (prostate specific antigen) Z12.5 Additional Codes ELLEN-7 Assessment Billing - ELLEN-7 Assessment Tool: ELLEN-7 Assessment 01809 ([id number])
== END 2024-01-04 13:48 | disposition home or self-care (01) ==
PROVIDERS: PCP Nurse Practitioner Family; Visit Provider Nurse Practitioner Family
DX: E78.5 Hyperlipidemia, unspecified (principal); Z12.5 Encounter for screening for malignant neoplasm of prostate
CPT/HCPCS: 99213

== ENCOUNTER 2024-01-09 15:17 | Outpatient (REF) | payer OTHER, SELFPAY | END 2024-01-09 15:18 | disposition home or self-care (01) | LOC: HO.BBR 15:17 | PROVIDERS: PCP Nurse Practitioner Family; Visit Provider Internal Medicine Medical Oncology | DX: Z13.89 Encounter for screening for other disorder (principal) ==

== ENCOUNTER 2024-03-09 14:44 | Outpatient (REF) | payer SELFPAY | END 2024-03-09 14:45 | disposition home or self-care (01) | LOC: HO.HAP 14:44 | PROVIDERS: Visit Provider Nurse Practitioner Family | DX: Z46.1 Encounter for fitting and adjustment of hearing aid (principal); H90.3 Sensorineural hearing loss, bilateral | CPT/HCPCS: 92593 ==

== ENCOUNTER 2024-03-31 07:02 | Outpatient (REF) | payer OTHER, SELFPAY ==
[2024-03-31 07:38] LABS: MANUAL DIFF FLAG NO
[2024-03-31 08:25] LABS: Basophils Percent Auto 0.6 % (0-2); Eosinophils Absolute Auto 0.3 X10*3/uL (0.0-0.4); Eosinophils Percent Auto 5.7 % (0-4); Hematocrit 47.3 % (42.0-52.0); Hemoglobin 16.4 g/dl (14.0-18.0); Imm Gran Abs Auto 0.02 X10*3/uL (0.00-0.03); Imm Gran Pct Auto 0.4 % (0.0-0.4); Lymphocytes Absolute Auto 1.5 X10*3/uL (1.2-4.9); Lymphocytes Percent Auto 30.7 % (20-40); Mean Corpuscular HGB Conc 34.7 g/dl (31.0-36.0); Mean Corpuscular Hemoglobin 30.4 pg (27.0-33.0); Mean Corpuscular Volume 87.8 fL (80.0-98.0); Mean Platelet Volume 9.6 fL (9.4-12.4); Monocytes Absolute Auto 0.5 X10*3/uL (0.1-1.2); Monocytes Percent Auto 9.7 % (2-11); Neutrophils Absolute Auto 2.5 x10*3/uL (2.0-8.3); Neutrophils Percent Auto 52.9 % (45-73); Platelet Count 221 X10*3/uL (160-400); Red Blood Count 5.39 X10*6/uL (4.60-5.80); White Blood Count 4.7 X10*3/uL (4.8-10.8)
[2024-03-31 08:51] LABS: Alanine Aminotransferase 23 U/L (0-40); Albumin Level 4.7 g/dL (3.5-5.0); Alkaline Phosphatase 49 U/L (39-117); Anion Gap 12 (12-20); Aspartate Amino Transferase 17 U/L (5-37); Blood Urea Nitrogen 18 mg/dL (9-16); Calcium 9.5 mg/dL (8.4-10.2); Carbon Dioxide 26 mmol/L (22-29); Chloride 107 mmol/L (96-108); Cholesterol 144 mg/dL (<200); Estimated Glomerular Filt Rate > 60; Glucose Fasting 109 mg/dL (60-99); Glucose Random 110 mg/dL (60-115); HDL Cholesterol 47 mg/dL (>40); LDL Cholesterol Calculated 77 mg/dL (<100); Potassium 4.2 mmol/L (3.3-5.1); Sodium 141 mmol/L (135-145); Total Protein 7.4 g/dL (6.5-8.0); Triglycerides 104 mg/dL (<150)
[2024-03-31 09:08] LABS: Ferritin 331 ng/mL (20-250)
[2024-03-31 09:15] LABS: Prostate Specific Antigen Scr 0.61 ng/mL (<0.05-4.0)
== END 2024-03-31 07:03 | disposition home or self-care (01) ==
LOC: HO.LAB 07:02
PROVIDERS: Internal Medicine Medical Oncology; PCP Nurse Practitioner Family; Visit Provider Nurse Practitioner Family
DX: E78.5 Hyperlipidemia, unspecified (principal); Z12.5 Encounter for screening for malignant neoplasm of prostate; R79.89 Other specified abnormal findings of blood chemistry
CPT/HCPCS: 36415; 80053; 80061; 82728; 84153; 85025

== ENCOUNTER 2024-04-09 14:56 | Outpatient (REF) | payer OTHER, SELFPAY ==
[2024-04-09 15:38] LABS: MANUAL DIFF FLAG NO
[2024-04-09 15:42] LABS: Basophils Percent Auto 0.5 % (0-2); Eosinophils Absolute Auto 0.3 X10*3/uL (0.0-0.4); Eosinophils Percent Auto 4.5 % (0-4); Hematocrit 41.7 % (42.0-52.0); Hemoglobin 14.8 g/dl (14.0-18.0); Imm Gran Abs Auto 0.03 X10*3/uL (0.00-0.03); Imm Gran Pct Auto 0.5 % (0.0-0.4); Lymphocytes Absolute Auto 1.9 X10*3/uL (1.2-4.9); Lymphocytes Percent Auto 31.8 % (20-40); Mean Corpuscular HGB Conc 35.5 g/dl (31.0-36.0); Mean Corpuscular Hemoglobin 30.6 pg (27.0-33.0); Mean Corpuscular Volume 86.2 fL (80.0-98.0); Mean Platelet Volume 9.4 fL (9.4-12.4); Monocytes Absolute Auto 0.6 X10*3/uL (0.1-1.2); Monocytes Percent Auto 10.7 % (2-11); Neutrophils Absolute Auto 3.1 x10*3/uL (2.0-8.3); Platelet Count 211 X10*3/uL (160-400); Red Blood Count 4.84 X10*6/uL (4.60-5.80); Red Cell Distribution Width 11.9 % (11.0-16.0)
[2024-04-09 16:28] LABS: Iron 85 mcg/dL (45-160); Percent Iron Saturation 34 % (15-50); Total Iron Binding Capacity 247 mcg/dL (228-428); Unsaturated Iron Binding 162 ug/dL
[2024-04-09 17:07] LABS: Ferritin 304 ng/mL (20-250)
== END 2024-04-09 14:57 | disposition home or self-care (01) ==
LOC: HO.BBR 14:56
PROVIDERS: PCP Nurse Practitioner Family; Visit Provider Internal Medicine Medical Oncology
DX: E83.110 Hereditary hemochromatosis (principal)
CPT/HCPCS: 36415; 82728; 83540; 85025

== ENCOUNTER 2024-06-28 09:02 | Outpatient (AMB) | payer OTHER, SELFPAY ==
--- NOTE | 2024-06-28 09:05 | A.OFFPC_ITS ---
Vital Signs 06/28/24 09:06 Height 6 ft 1 in Weight 231 lb BMI 30.5 BP 138/82 Blood Pressure Location Rt brachial Position Sitting Pulse 80 Pulse Source Pulse Oximeter Pulse Oximetry (%) 97 Oxygen Delivery Method Room Air Intake Visit Reasons: Annual PE Intake Note: pt is here for PE Prop Sawyer Required: No Accompanied by: Self / Same As Patient Allergies Penicillins [PENICILLINS] Allergy (Severe, Verified 06/28/24 09:31) ANAPHYLAXIS penicillin V Allergy (Unknown, Verified 06/28/24 09:31) anaphylaxis Medication List - Last Reconciled 06/28/24 by GEE Douglas- cetirizine (Zyrtec) 10 mg PO DAILY PRN rosuvastatin 5 mg PO DAILY Tobacco use date assessed: 01/04/24 Dental Screening Dental Screen Date: 01/04/24 HPI Annual PE HPI Details History of Present Illness The patient is a 58-year-old male presenting for a routine wellness visit and a request for an updated hearing test. He has a history of exostosis of the ear canal noted during a prior evaluation. During this visit, the patient confirms no current urinary issues or prostate concerns and has an up-to-date Prostate- Specific Antigen (PSA) test. There is a family history of stomach cancer in his father, which should be considered during future gastrointestinal screenings such as colonoscopies. The patient reports no smoking history and maintains a physically active lifestyle by walking his dogs daily. His blood pressure readings are stable. The patient is due for another routine complete blood count and differential in a couple of months. Pt refused PSA today. Social History - The patient is employed and needs to c oordinate medical appointments around work schedule. - He engages in regular exercise by walk ing his dogs daily for one to one and a quarter miles. - He denies smoking. Review of Systems - Genitourinary: Denies urinary issues, including weak stream, excessive dribbling, or incomplete bladder emptying. - Other symptoms: Denies smoking. denies any cp, sob, abd pain, change in bowel habits, [place], dizziness, numbness tingling Physical Exam General: Cooperative, healthy appearing, comfortable, no acute distress and well developed Orientation: Patient oriented x3 Limitations: No limitations Head: Normal to inspection Ears: Hearing grossly normal bilaterally, exostosis in the right ear canal Nose: Normal external nose present Face and sinus: Normal facial exam Eyes: Appearance normal, both eyes and all related structures Neck: Normal visual inspection and Yes full ROM Respiratory: Normal respiratory effort and able to speak in complete sentences. Clear to auscultation bilaterally Cardiovascular: Regular rate and rhythm. Normal S1 and S2 GI: Normal to inspection. Soft to palpation and nontender Skin: No rashes or lesions noted Neuro: Patient oriented x3 Extremities: Normal to inspection Results Plan - Exostosis of the ear canal: Monitor th e condition; no immediate intervention is needed. Patient is advised to watch for any changes in hearing and discuss co ncerns during the upcoming hearing test. - Family history of stomach cancer: Main tain routine colon cancer screening. Incorporate an endoscopic evaluation during future colon screenings due to family history. - Preventive Care: Schedule updated hear ing test at [facility]. Patient agrees to obtain next round of labs for routine evaluation in approximately three to five months. Patient was informed and verbally consented to the use of an ambient scribe for clinic note documentation during this visit. Discussion Notes I discussed that the patient is not currently due for a colon cancer screening until July 2025, but during his next colonoscopy, he should communicate his father's history of stomach cancer. An endoscopy may be warranted to rule out any gastrointestinal concerns. The patient expressed understanding and agreed to mention this to his human resources benefits assistant. We discussed the importance of maintaining routine screenings, including hearing tests. The patient was inf ormed about arranging blood tests in a couple of months, and I emphasized the importance of maintaining his current active lifestyle. We also confirmed that his blood pressure readings remain normal, and no changes in management are required at this time. Patient Instructions - Schedule an updated hearing test at [facility] as discussed. - Mention family history of stomach canc er during future colonoscopy visits for consideration of an endoscopy. - Continue regular exercise regimen and monitor any changes in health. - Return for next set of routine labs in approximately three to five months. - Follow up in one year for routine well ness visit unless issues arise sooner. PFSH Medical History Tinnitus Tubular adenoma Diverticulitis Dyslipidemia Surgical History H/O colonoscopy Family History Mother Diabetes HTN (hypertension) Hemochromatosis Father Stomach cancer Diabetes HTN (hypertension) Brother Hemochromatosis Sister Hemochromatosis Diabetes HTN (hypertension) Social History Household Members: Spouse and Children Housing: House Alcohol intake: current Alcohol intake frequency: holidays/special occasions only Alcohol type: beer Patient Tobacco Use Status: Never used Tobacco e-Cigarette/Vaping Use: Never Used Second Hand Smoke Exposure: No service: No Current occupational status: employed Current occupation: [employer] Current occupational exposures/hazards: No Cognitive needs: No Hearing needs: No Vision needs: No Questionnaire PHQ-9 Over the last 2 weeks, how often have you been bothered by any of the following problems? 1. Little interest or pleasure in doing things: not at all 2. Feeling down, depressed, or hopeless: not at all 3. Trouble falling or staying asleep, or sleeping too much: not at all 4. Feeling tired or having little energy: not at all 5. Poor appetite or overeating: not at all 6. Feeling bad about yourself - or that you are a failure or have let yourself or your family down: not at all 7. Trouble concentrating on things, such as reading the newspaper or watching television: not at all 8. Moving or speaking so slowly that other people could have noticed. Or the opposite - being so fidgety or restless that you have been moving around a lot more than usual: not at all 9. Thoughts that you would be better off or of hurting yourself in some way: not at all Total score: 0 Depression Screening Interpretation: Negative Depression Screening Done: Yes 09956 - PHQ-9 Billing: Yes Source: Developed by Drs. Edwar Garay, Kayla Perkins, Manjinder Merida and colleagues, with an educational gustavo from [employer]. Thrive Questionnaire Date Thrive assessed: 06/28/24 I am a: Patient What is your living situation today?: I have a steady place to live Within the past 12 months, did the food you bought not last and you didn't have the money to get more?: Never true Within the past 12 months, did you worry whether your food would run out before you got money to buy more?: Never true Do you have trouble paying for medicines?: No Do you have trouble getting transportation to medical appointments?: No Do you have trouble paying your heating and electricity bill?: No Do you have trouble taking care of your child, family member or friend?: No Do you have trouble with day-to-day activities such as bathing, preparing meals, shopping, managing finances, etc.?: No Are you currently unemployed and looking for a job?: No Are you interested in more education?: No Please select the resources that you would like help with: None Currently or been in a relationship where the following occur: No concerns reported THRIVE Score: 0 AUDIT C Alcohol Use Questionnaire (AUDIT-C) 1. How often do you have a drink containing alcohol?: 2-4 times a month 2. How many drinks containing alcohol do you have on a typical day when you are drinking?: 3 or 4 3. How often do you have six or more drinks on one occasion?: Less than monthly Total Score: 4 Score Reviewed/Action Taken: Yes ELLEN-7 AMB Questionnaire ELLEN-7 Date ELLEN - 7 assessed: 06/28/24 Feeling nervous, anxious, or on edge: 0 = Not at all Not being able to stop or control worryin = Not at all Worrying too much about different things: 0 = Not at all Trouble relaxin = Not at all Being so restless that it is hard to sit still: 0 = Not at all Becoming easily annoyed or irritable: 0 = Not at all Feeling afraid as if something awful might happen: 0 = Not at all Total ELLEN-7 score (0-4 normal; 5-9 mild; 10-14 moderate; 15-21 severe): 0 Source: Developed by Drs. Edwar Garay, Kayla Perkins, Manjinder Merida and colleagues, with an educational gustavo from [employer]. ELLEN-7 Assessment Billing ELLEN-7 Assessment Tool: ELLEN-7 Assessment 86058 Physical exam (Primary Care) Vital Signs: Last Vital Signs Pulse 80 06/28/24 09:06 BP 138/82 06/28/24 09:06 Pulse Ox 97 06/28/24 09:06 Oxygen Delivery Method Room Air 12/05/24 09:06 BMI result Body Mass Index 30.5 Tobacco/Smoking Status: Tobacco use Status Tobacco use date assessed 01/04/24 06/28/24 09:08 Patient Tobacco Use Status Never used Tobacco 06/28/24 09:08 e-Cigarette/Vaping Use Never Used 06/28/24 09:08 PHQ-9: PHQ-9 Score PHQ-9: Total score 0 06/28/24 09:08 Depression Screening Interpretation: Negative Thrive Assessment: Date of Thrive Assessment Date Thrive assessed 06/28/24 06/28/24 09:08 Currently or been in a relationship where the following occur: No concerns reported Coding Level of Care Code Est Pt Prev Care 40-64y(38406) Diagnoses Physical exam Z00.00 Loss of hearing H91.90 Additional Codes ELLEN-7 Assessment Billing - ELLEN-7 Assessment Tool: ELLEN-7 Assessment 37241 ([id number]) PHQ-9 - 42827 - PHQ-9 Billing: Yes ([id number]) Assessment & Plan Assessment & Plan (1) Physical exam: Code(s): Z00.00 - Encounter for general adult medical examination without abnormal findings Category: Medical (2) Loss of hearing: Code(s): H91.90 - Unspecified hearing loss, unspecified ear Category: Medical Plan . Orders: Orders Lipid Panel Today Z00.00 - Encounter for general adult medical examination without abnormal findings Complete Blood Count Auto Diff Today Z00.00 - Encounter for general adult medical examination without abnormal findings Comprehensive [place]. Panel Fast Today Z00.00 - Encounter for general adult medical examination without abnormal findings TSH reflex Free T4 Today Z00.00 - Encounter for general adult medical examination without abnormal findings UA CC w/rflx Micro + Cult Today Z00.00 - Encounter for general adult medical examination without abnormal findings Referrals Speech and Hearing Referral H91.90 - Unspecified hearing loss, unspecified ear
[2024-06-28 09:06] VITALS: BP 138/82; PULSE 80; O2SAT 97; BMI 30.5
== END 2024-06-28 09:39 | disposition home or self-care (01) ==
PROVIDERS: PCP Nurse Practitioner Family; Visit Provider Nurse Practitioner Family
DX: Z00.00 Encounter for general adult medical examination without abnormal findings (principal); H91.90 Unspecified hearing loss, unspecified ear

== ENCOUNTER → 2024-06-28 09:02 | Outpatient (BNVA) | payer OTHER, SELFPAY | PROVIDERS: PCP Nurse Practitioner Family; Visit Provider Nurse Practitioner Family | DX: Z00.01 Encounter for general adult medical examination with abnormal findings (principal); H91.90 Unspecified hearing loss, unspecified ear; Z80.0 Family history of malignant neoplasm of digestive organs | CPT/HCPCS: 96127 ==

== ENCOUNTER 2024-07-06 14:02 | Outpatient (REF) | payer OTHER, SELFPAY ==
[2024-07-06 14:11] LABS: MANUAL DIFF FLAG NO
[2024-07-06 14:13] LABS: Basophils Percent Auto 0.3 % (0-2); Eosinophils Absolute Auto 0.2 X10*3/uL (0.0-0.4); Eosinophils Percent Auto 3.5 % (0-4); Hematocrit 41.8 % (42.0-52.0); Hemoglobin 15.3 g/dl (14.0-18.0); Imm Gran Abs Auto 0.01 X10*3/uL (0.00-0.03); Imm Gran Pct Auto 0.2 % (0.0-0.4); Lymphocytes Absolute Auto 1.5 X10*3/uL (1.2-4.9); Lymphocytes Percent Auto 25.8 % (20-40); Mean Corpuscular HGB Conc 36.6 g/dl (31.0-36.0); Mean Corpuscular Hemoglobin 30.6 pg (27.0-33.0); Mean Corpuscular Volume 83.6 fL (80.0-98.0); Monocytes Absolute Auto 0.6 X10*3/uL (0.1-1.2); Monocytes Percent Auto 10.4 % (2-11); Neutrophils Absolute Auto 3.5 x10*3/uL (2.0-8.3); Neutrophils Percent Auto 59.8 % (45-73); Platelet Count 196 X10*3/uL (160-400); Red Cell Distribution Width 12.1 % (11.0-16.0); White Blood Count 5.8 X10*3/uL (4.8-10.8)
[2024-07-06 15:12] LABS: Iron 70 mcg/dL (45-160); Percent Iron Saturation 28 % (15-50); Total Iron Binding Capacity 253 mcg/dL (228-428); Unsaturated Iron Binding 183 ug/dL
[2024-07-06 15:27] LABS: Ferritin 178 ng/mL (20-250)
== END 2024-07-06 14:03 | disposition home or self-care (01) ==
LOC: HO.BBR 14:02
PROVIDERS: PCP Nurse Practitioner Family; Visit Provider Internal Medicine Medical Oncology
DX: E83.110 Hereditary hemochromatosis (principal)
CPT/HCPCS: 36415; 82728; 83540; 85025

== ENCOUNTER 2024-08-07 15:50 | Outpatient (REF) | payer OTHER, SELFPAY | END 2024-08-07 15:51 | disposition home or self-care (01) | LOC: HO.SH 15:50 | PROVIDERS: Visit Provider Nurse Practitioner Family | DX: Z01.118 Encounter for examination of ears and hearing with other abnormal findings (principal); H90.3 Sensorineural hearing loss, bilateral | CPT/HCPCS: 92552; 92556 ==

== ENCOUNTER 2024-08-07 16:34 | Outpatient (REF) | payer SELFPAY | END 2024-08-07 16:35 | disposition home or self-care (01) | LOC: HO.HAP 16:34 | PROVIDERS: Visit Provider Nurse Practitioner Family | DX: Z46.1 Encounter for fitting and adjustment of hearing aid (principal); H90.3 Sensorineural hearing loss, bilateral | CPT/HCPCS: 92593; V5267 ==

== ENCOUNTER 2024-10-04 14:50 | Outpatient (REF) | payer SELFPAY ==
[2024-10-04 15:01] LABS: MANUAL DIFF FLAG NO
[2024-10-04 15:03] LABS: Basophils Percent Auto 0.7 % (0-2); Eosinophils Absolute Auto 0.4 X10*3/uL (0.0-0.4); Eosinophils Percent Auto 6.5 % (0-4); Hematocrit 42.7 % (42.0-52.0); Hemoglobin 15.3 g/dl (14.0-18.0); Imm Gran Abs Auto 0.03 X10*3/uL (0.00-0.03); Imm Gran Pct Auto 0.5 % (0.0-0.4); Lymphocytes Absolute Auto 1.6 X10*3/uL (1.2-4.9); Lymphocytes Percent Auto 27.7 % (20-40); Mean Corpuscular HGB Conc 35.8 g/dl (31.0-36.0); Mean Corpuscular Hemoglobin 30.1 pg (27.0-33.0); Mean Corpuscular Volume 83.9 fL (80.0-98.0); Mean Platelet Volume 9.2 fL (9.4-12.4); Monocytes Absolute Auto 0.6 X10*3/uL (0.1-1.2); Monocytes Percent Auto 9.8 % (2-11); Neutrophils Absolute Auto 3.1 x10*3/uL (2.0-8.3); Neutrophils Percent Auto 54.8 % (45-73); Platelet Count 206 X10*3/uL (160-400); Red Blood Count 5.09 X10*6/uL (4.60-5.80); Red Cell Distribution Width 12.4 % (11.0-16.0); White Blood Count 5.7 X10*3/uL (4.8-10.8)
[2024-10-04 15:37] LABS: Iron 87 mcg/dL (45-160); Percent Iron Saturation 34 % (15-50); Total Iron Binding Capacity 257 mcg/dL (228-428); Unsaturated Iron Binding 170 ug/dL
[2024-10-04 15:52] LABS: Ferritin 144 ng/mL (20-250)
== END 2024-10-04 14:51 | disposition home or self-care (01) ==
LOC: HO.BBR 14:50
PROVIDERS: PCP Nurse Practitioner Family; Visit Provider Internal Medicine Medical Oncology
DX: E83.110 Hereditary hemochromatosis (principal)
CPT/HCPCS: 36415; 82728; 83540; 85025

== ENCOUNTER 2025-01-23 14:50 | Outpatient (REF) | payer OTHER, SELFPAY | END 2025-01-23 14:51 | disposition home or self-care (01) | LOC: HO.BBR 14:50 | PROVIDERS: PCP Nurse Practitioner Family; Visit Provider Nurse Practitioner Family | DX: Z13.89 Encounter for screening for other disorder (principal) ==

== ENCOUNTER 2025-03-26 15:12 | Outpatient (REF) | payer OTHER, SELFPAY | END 2025-03-26 15:13 | disposition home or self-care (01) | LOC: HO.BBR 15:12 | PROVIDERS: PCP Nurse Practitioner Family; Visit Provider Nurse Practitioner Family | DX: Z13.89 Encounter for screening for other disorder (principal) ==

== ENCOUNTER 2025-05-28 15:20 | Outpatient (REF) | payer OTHER, SELFPAY | END 2025-05-28 15:21 | disposition home or self-care (01) | LOC: HO.BBR 15:20 | PROVIDERS: PCP Nurse Practitioner Family; Visit Provider Nurse Practitioner Family | DX: Z13.89 Encounter for screening for other disorder (principal) ==